=== PATIENT | male | born 1990 | race Caucasian/White ===

== ENCOUNTER 2016-11-23 19:49 | Inpatient (IN) ==
[2016-11-23] MEDS ORDERED: NS 1,000 ML IV ONE ×3 (20:04→22:35)
[2016-11-23] MEDS ORDERED: ATIVAN IV ONE (20:05)
[2016-11-23 20:09] LABS: URINE CULTURE NEEDED? NO; URINE SOURCE CLEAN CATCH
[2016-11-23 20:15] LABS: BILIRUBIN URINE NEGATIVE (NEGATIVE); BLOOD URINE MODERATE (NEGATIVE); COLOR YELLOW; GLUCOSE URINE TRACE mg/dL (NEGATIVE); LEUKOCYTES URINE NEGATIVE (NEGATIVE); NITRITE URINE NEGATIVE (NEGATIVE); PROTEIN URINE 200 mg/dL (NEGATIVE); SP GRAVITY URINE 1.032; TURBIDITY URINE HAZY (CLEAR); UR EPITHELIAL CELLS <10 /HPF (<10); URINE BACTERIA NEGATIVE /HPF; URINE MICRO REVIEW NEEDED? YES; URINE RBC TNTC /HPF (<10); URINE WBC <10 /HPF (<10); UROBILINOGEN URINE NORMAL (NORMAL)
--- NOTE | 2016-11-23 20:19 | PROVIDER DOCUMENTATION ---
HPI-General Adult - General Chief Complaint: General Adult Stated Complaint: CHILLS,N/D Time Seen by Provider: 11/23/16 19:59 Source: patient Allergies/Adverse Reactions: Patient Allergies Allergy/AdvReac Type Severity Reaction Status Date / Time No Known Allergies Allergy Verified 11/23/16 20:16 Home Medications: Home Medication List Medication Instructions Recorded Confirmed Last Taken Type Dicyclomine [Bentyl] 10 mg PO 4XDAY 11/23/16 11/23/16 11/23/16 16:00 History Pantoprazole [Protonix] 40 mg PO DAILY@0700 11/23/16 11/23/16 1 Day Ago History Promethazine [Phenergan] 25 mg PO Q6H PRN PRN 11/23/16 11/23/16 11/23/16 16:00 History - History of Present Illness -Gen Adult Nature of Presenting Problems: Pt comes in thinking that he was slipped GHB this previous tuesday. He went to [facility] and a "10 panel" drug test was negative but he was given fluids for being hypotensive and tachycardic. He denies drug use but he states that he started having bright red rectal bleeding today X 10 or so episodes. On arrival pt HR 160's SVT. Review of Systems - Adult - REVIEW OF SYSTEMS - ADULT Constitutional: reports: see HPI. denies: chills, fever, fatique, night sweats , weight gain, weight loss Eyes: reports: no symptoms reported. denies: discharge, dry eyes, decreased vision, blurred vision, double vision, eye pain, redness Ears, Nose, Mouth & Throat: reports: no symptoms reported. denies: ear discharge, ear pain, tinnitus, epistaxis, nose pain, loose teeth, mouth swelling , hoarseness, throat swelling Cardiovascular: reports: no symptoms reported. denies: chest pain, edema, heart murmur, irregular heart rate, palpitations, poor circulation, PND, syncope Respiratory: reports: no symptoms reported. denies: chronic cough, cough, dyspnea on exertion, excessive sputum production, hemoptysis, shortness of breath, wheezing Gastrointestinal: reports: see HPI, diarrhea, nausea. denies: abdominal pain, difficulty swallowing, frequent heartburn, rectal bleeding, vomiting Genitourinary: reports: no symptoms reported. denies: dysuria, discharge, flank pain, hematuria, hesitency, incontinence, urinary retention, urgency Musculoskeletal: reports: no symptoms reported. denies: bone pain, back pain, frequent leg cramps, joint swelling, muscle aches, muscle weakness, neck pain Integumentary: reports: no symptoms reported. denies: hives, hair loss, mole changes, rash, skin sores/ulcer, skin thickening Neurological: reports: no symptoms reported. denies: ataxia, dizziness/vertigo , loss of balance, numbness, seizure, slurred speech, syncope, tremors Psychiatric: reports: no symptoms reported. denies: anxiety, anti-depressant use, alcohol/drug dependence, depression, emotional problems, insomnia, panic attacks Endocrine: reports: no symptoms reported. denies: change in skin pigment, goiter, heat intolerance, increased hunger, increased thirst, polyuria Hematologic/Lymphatic: reports: no symptoms reported. denies: blood clots, easy bruising, lymphedema, prolonged bleeding, swollen lymph nodes, transfusions Allergic/Immunologic: reports: no symptoms reported. denies: allergic reactions , allergic rhinitis, asthma, eczema, hay fever, hives, positive PPD, urticaria All Other Systems: Reviewed and Negative Past History - Adult - PAST MEDICAL HISTORY-ADULT Review of Records: reports: Old Records Reviewed, Nursing Assessment Review, Medications Reviewed, Social history reviewed & non-contributory. Major Childhood Illnesses: reports: denies history Cardiovascular: reports: denies history Respiratory: reports: denies history Gastrointestinal: reports: GERD Obstetrical/Gynecological: reports: denies history Genitourinary: reports: denies history Musculoskeletal: reports: denies history Neurological: reports: denies history Endocrine/Immune: reports: denies history Other Conditions: reports: denies history - PRIOR SURGERIES/PROCEDURES Surgical/Procedure History: reports: tonsillectomy - IMMUNIZATION STATUS Childhood Immunizations: See Nurse Assessment Flu Vaccine: See Nurse Assessment - FAMILY HISTORY Family History: reviewed, not pertinent - SOCIAL HISTORY Smoking: denies Substance Use: none/never Alcohol Use Frequency: occasionally Living Situation: alone Physical Exam-General - PHYSICAL EXAM-ADULT Initial Vital Signs Reviewed: Yes - CONSTITUTIONAL General Appearance: appears well, alert, no apparent distress - EYES Eyes: PERRL/EOMI, pink conjunctivae - HEAD, EARS, NOSE, MOUTH & THROAT HENMT: normocephalic/atraumatic, moist mucous membranes, normal ENT inspection - NECK Neck: non-tender, full range of motion - RESPIRATORY Respiratory: chest non-tender, lungs clear, normal breath sounds - CARDIOVASCULAR Cardiovascular: normal peripheral pulses, regular rate, rhythm - GASTROINTESTINAL (ABDOMEN) Abdominal Exam: normal bowel sounds, non tender, soft - MUSCULOSKELETAL Back Exam: normal inspection, no CVA tenderness Extremity: normal range of motion, non-tender, normal gait - SKIN Integumentary: normal color, normal turgor, warm/dry - NEUROLOGIC Neurologic: wharf tender II-XII nml as tested, grossly normal - PSYCHIATRIC Psych/Mental Status: normal mood/affect, normal thought content, normal thought process, oriented x 3 Progress - PLAN OF CARE/RESULTS Progress/Plan/Lab Results: Vital Signs - 8 hr 11/23/16 19:55 Temperature 98.6 F Pulse Rate 172 H Respiratory Rate 18 Blood Pressure 146/93 O2 Sat by Pulse Oximetry 98 Laboratory Results - last 24 hr 11/23/16 19:55 Urine Source CLEAN CATCH Orders Category Date Time Status IV Insertion ORDERED Care 11/23/16 20:04 Active CBC WITH DIFF [HEME] Stat Lab 11/23/16 20:13 Ordered CMP [COMPREHENSIVE METABOLIC PANEL] [CHEM] Stat Lab 11/23/16 20:13 Uncollected UDS [URINE DRUG SCREEN] Stat Lab 11/23/16 19:55 Received URINALYSIS W/POSS RFLX CULT-1 [URINALYSIS] Stat Lab 11/23/16 19:55 Results 0.9% Sodium Chloride Inj [Ns] 1,000 ml Med 11/23/16 20:04 Active IV 999 mls/hr Lorazepam [Ativan] Med 11/23/16 20:05 Stop Req 2 mg IV NOW ONE EKG [EKG] Stat Ther 11/23/16 19:58 Ordered Result Diagrams: 11/23/16 20:05 11/23/16 20:00 Departure - Departure Date of Disposition Decision: 11/23/16 Time of Disposition Decision: 21:14 DIAGNOSIS: Hemorrhagic colitis, SVT (supraventricular tachycardia) Hematuria Qualifiers: Hematuria type: unspecified type Qualified Code(s): R31.9 - Hematuria, unspecified Disposition: ADMITTED INPATIENT 09 Certified Medical Emergency: Emergent Condition: Good Additional Freetext Instructions: ED Follow Up Instructions: You have been treated by a care provider in the Emergency Department. These instructions are being provided to you so you can have an understanding of how to care for yourself upon discharge. Upon discharge from the Emergency Department, you are responsible for making arrangements for follow-up care by a physician of your choice. Take all prescribed medications as directed. Return to the Emergency Department immediately for any new or worsening symptoms. You may call the Physician Referral phone number at [phone] to obtain a list of Physicians who are taking new patients. Referrals and Follow-Ups: Elie Gomez [Primary Care Provider] - - Critical Care Note This patient required my direct & personal management of CC.: No Attestation - Physician/ DAYANA Attestation Patient care was provided by Advanced Practice Provider:: Yes Advanced Practice Provider:: Sekou Garcia (physician present but did not see this patient ) Advanced Practice Provider documentation review:: The Mid-level provider documentation, treatment plan and medical decision making was reviewed by the physician who agrees with all treatment and medical decision making by the MLP.
--- NOTE | 2016-11-23 20:32 | ED EKG INTERP ---
This chart was entered by Ellyn Valencia Scribe, acting as scribe for Marcos Clay MD. EKG Interpretation - EKG Time of EKG reading by physician:: 19:55 EKG Read and Signed by:: Marcos Clay EKG Interpretation (*Must complete 3 of following elements*): Abnormal Rate: 152 Rhythm: Sinus Tachycardia [place]: right (deviation) Comments: Abnormal ECG Attestation - Physician/ DAYANA Attestation Patient care was provided by Advanced Practice Provider:: Yes Advanced Practice Provider:: Sekou Garcia Advanced Practice Provider documentation review:: The Mid-level provider documentation, treatment plan and medical decision making was reviewed by the physician who agrees with all treatment and medical decision making by the MLP. This chart was documented by the indicated scribe, (Ellyn Valencia Scribe) and accurately reflects the services I performed and decisions made by me, Marcos Clay MD, as attested by the provider's signature.
[2016-11-23 20:33] LABS: UR AMPHETAMINES QUAL NONE DETECTED (NONE DETECT); UR BARBITUATES QUAL NONE DETECTED (NONE DETECT); UR BENZODIAZEPIN QUAL NONE DETECTED (NONE DETECT); UR CANNABINOIDS QUAL NONE DETECTED (NONE DETECT); UR COCAINE QUAL NONE DETECTED (NONE DETECT); UR METHADONE QUAL NONE DETECTED (NONE DETECT); UR OPIATES QUAL NONE DETECTED (NONE DETECT); UR OXYCODONE QUAL NONE DETECTED (NONE DETECT); UR PCP QUAL NONE DETECTED (NONE DETECT)
[2016-11-23 20:43] LABS: URINE CASTS NONE SEEN
[2016-11-23 20:52] LABS: AGAP 18; ALBUMIN 3.6 g/dL (3.5-5.0); ALKALINE PHOSPHATASE 51 U/L (32-122); BUN 15 mg/dL (8-22); CALCIUM 8.7 mg/dL (8.8-10.2); CHLORIDE 92 mmol/L (98-107); COSMO 264; GOT 15 U/L (10-34); GPT 15 U/L (10-44); SODIUM 130 mmol/L (136-145); TCO2 20 mmol/L (25-35); TOTAL PROTEIN 6.9 g/dL (6.3-8.3)
[2016-11-23 20:53] LABS: BASO% 0.2 % (0.0-0.8); EOS# 0.08 X1000 (0.0-0.7); EOS% 0.8 % (0.0-10.0); HEMATOCRIT 48.4 % (42.0-52.0); IMM GRAN# 0.05 X1000 (0.0-0.04); IMM GRAN% 0.5 % (0.0-0.5); LYMPH# 0.58 X1000 (1.2-3.4); LYMPH% 5.5 % (20.5-51.1); MANUAL DIFF NEEDED? NO; MCH 30.9 PG (27-31); MCHC 35.1 g/dL (33-37); MONO# 1.13 X1000 (0.11-0.59); MONO% 10.7 % (1.7-9.3); MPV 11.3 FL (7.4-10.4); NEUT% 82.3 % (42.2-75.2); PLT 170 X1000 (130-400)
[2016-11-23 21:16] LABS: INR 0.94; PROTIME 9.8 Seconds (9.2-11.7); PTT 26.4 Seconds (22.0-36.0)
--- NOTE | 2016-11-23 21:23 | Diag Imaging Result Doc PS360 ---
EXAM: RENAL STONE SEARCH HISTORY: blood in urine and n/v TECHNIQUE: CT abdomen and pelvis without contrast. Dose reduction protocol. COMPARISON: None. FINDINGS: The upper abdomen is not included on this exam. There is at least mild fatty infiltration of the liver. Spleen is not enlarged. Normal noncontrasted pancreas. No calcified gallstones or adjacent inflammation. Normal adrenal glands. No perinephric inflammation. No renal stones. No hydronephrosis. Normal aorta. There is thickening to the wall of the colon and there are mild adjacent pericolonic inflammatory changes. Inflammation is most pronounced about the descending colon. Normal appendix. No abscess. No free air. The urinary bladder is mildly distended and appears normal. The prostate is not enlarged. There is a tiny amount of free fluid within the pelvis. IMPRESSION: 1.Colitis most pronounced in the descending colon 2.No renal stones or hydronephrosis 3.Fatty infiltration of the liver Electronically signed by Aydin Osorio 11/23/2016 9:21 PM
--- NOTE | 2016-11-23 21:58 | Diag Imaging Result Doc PS360 ---
EXAM: CHEST-2 VIEWS HISTORY: base line eval, blood in urine, nausea, vomiting TECHNIQUE: COMPARISON: None. FINDINGS: The lungs are well expanded. The heart is not enlarged. The vessels are not distended. There are no infiltrates. No pleural effusions. IMPRESSION: No acute abnormality. Electronically signed by Aydin Osorio 11/23/2016 9:56 PM
[2016-11-23] MEDS ORDERED: NS 500 ML IV ONE (22:35)
[2016-11-23] MEDS ORDERED: ZOFRAN IV PRN (22:35)
[2016-11-23] MEDS: MORPHINE IV PRN (22:47)
[2016-11-24] MEDS ORDERED: TYLENOL PO PRN (00:20)
[2016-11-24] MEDS: MORPHINE IV PRN ×7 (02:28→21:07)
[2016-11-24 05:11] LABS: BASO% 0.1 % (0.0-0.8); HEMATOCRIT 41.2 % (42.0-52.0); HEMOGLOBIN 14.4 g/dL (14.0-18.0); IMM GRAN# 0.02 X1000 (0.0-0.04); IMM GRAN% 0.3 % (0.0-0.5); LYMPH# 0.52 X1000 (1.2-3.4); LYMPH% 7.7 % (20.5-51.1); MANUAL DIFF NEEDED? YES; MCH 31.1 PG (27-31); MONO% 11.8 % (1.7-9.3); MPV 11.4 FL (7.4-10.4); NEUT% 80.1 % (42.2-75.2); PLT 125 X1000 (130-400); RBC 4.63 XMIL (4.7-6.1)
[2016-11-24 05:23] LABS: HEMOGLOBIN A1C 4.7 % (4.8-6.0)
[2016-11-24 05:28] LABS: AGAP 13; ALBUMIN 2.7 g/dL (3.5-5.0); ALKALINE PHOSPHATASE 38 U/L (32-122); BUN 9 mg/dL (8-22); CALCIUM 7.7 mg/dL (8.8-10.2); CHLORIDE 97 mmol/L (98-107); COSMO 265; GOT 11 U/L (10-34); GPT 12 U/L (10-44); MAGNESIUM 1.6 mg/dL (1.5-2.7); POTASSIUM 3.8 mmol/L (3.5-5.1); SODIUM 131 mmol/L (136-145); TCO2 21 mmol/L (25-35); TOTAL BILIRUBIN 0.37 mg/dL (0.20-1.00); TOTAL PROTEIN 5.3 g/dL (6.3-8.3)
[2016-11-24] MEDS: PRILOSEC PO SCH ×2 (05:35→06:52)
--- NOTE | 2016-11-24 05:40 | EKG Report ---
Test Performed on : 11/23/2016 7:55:51 PM Test Reason : TACHYCARDIA Blood Pressure : / mmHG Vent. Rate : 152 BPM Atrial Rate : 152 BPM P-R Int : 128 ms QRS Dur : 084 ms QT Int : 254 ms P-R-T Axes : 065 118 032 degrees QTc Int : 403 ms Sinus tachycardia. Right axis deviation Abnormal ECG No previous ECGs available Unconfirmed Result
[2016-11-24 07:00] LABS: BANDS 38 % (0-1); LYMPHS 10 % (21-51); MONO 12 % (1-9)
[2016-11-24] MEDS ORDERED: NS 1,000 ML IV ONE (07:00)
--- NOTE | 2016-11-24 07:02 | HISTORY AND PHYSICAL ---
PRIMARY CARE PHYSICIAN: Dr. Elie Gomez. TIME: 2214. CHIEF COMPLAINT: Lower abdominal pain and diarrhea. HISTORY OF PRESENT ILLNESS: Mr. Lockhart is a 26-year-old, male who presented to the ER [facility] with complaints of lower abdominal pain and diarrhea. He states that on Tuesday, he did not feel well. He actually stated that he had chills all day. The next morning , he woke up and was having diarrhea all day as well and began to have lower abdominal pain. He reports that on Tuesday, he went to [facility]. They ronaldo some labs. The patient also stated that he told the staff at [facility] that on Tuesday that he thought that he had been slipped some GHB and thought that his symptoms were secondary to this. They did do a urine drug screen at [facility] which was negative, though he was found to be hypotensive and tachycardic. He was given fluids and sent home with prescriptions. The patient states that his diarrhea persisted. He had approximately 10 episodes a day of this. He reported that today, on November 23, that he began having bloody diarrhea. He also reported some nausea. He reports lower abdominal pain that is constant and is sharp and crampy at times. He states that nothing improves or worsens his pain. He does report having a history of gastroesophageal reflux disease and takes Protonix. Upon questioning the patient, we asked him if he had a history of any previous gastrointestinal problems. He denied this. He denied any recent travel. He denied being around any other family members or friends who were sick or had similar symptoms. He also denied eating anything recently for which he thought tasted bad or made him sick. He did report that over the past day or two, he has had a slight decrease in the amount of urine he puts out and noticed that it was darker in color. He denied any dysuria. He does report that he has had problems with frequent urinary tract infections. He denies any dizziness, lightheadedness, headache, chest pain, or cough. He did report some shortness of breath, though he states this was mild. He denies any vomiting, though has had nausea as previously mentioned. He denies any pain,numbness, tingling, or swelling in extremities. Upon evaluation in the ER, the patient was initially found to be quite tachycardic. Initial vitals upon arrival were temperature 98.6 degrees, heart rate 172, respiratory rate of 18, blood pressure was 146/93, oxygen saturation was 98% on room air. Given his reported lower abdominal pain, tenderness, and bloody diarrhea, a CT renal stone search was performed which showed colitis most pronounced in the descending colon. The patient also had findings of protein in his urine as well as moderate blood and too numerous to count red blood cells. He was given a 2 L normal saline bolus in the ER. At this time, his heart rate has improved. It has come down to 120. EKG was performed which showed sinus tachycardia with a right axis deviation at a rate of 152 with a QTc of 403. At this time, the patient will be admitted for further treatment and evaluation of his colitis. REVIEW OF SYSTEMS: A 12 point review of systems was conducted with the patient. All were negative except for pertinent positives mentioned above in the HPI. PAST MEDICAL HISTORY: 1. Gastroesophageal reflux disease. 2. Frequent urinary tract infections. 3. Scheuermann's kyphosis. PAST SURGICAL HISTORY: Tonsillectomy and adenoidectomy. SOCIAL HISTORY: The patient denies any tobacco or illicit drug use, though does report occasional alcohol use. The patient currently lives alone at this time. He did report to the nurse on [facility] that he is homosexual and did previously get tested approximately 1 week ago for HIV and was told that his results were negative. FAMILY HISTORY: Positive for her his father having heart disease. He did pass away at age 60 secondary to a myocardial infarction. He reports that his mother has no known medical problems. There is also a history in grandparents of Parkinson's disease. ALLERGIES: Patient has no known allergies. HOME MEDICATIONS: 1. Flexeril 10 mg p.o. at bedtime. 2. Bentyl 10 mg p.o. 4 times a day. 3. Protonix 40 mg p.o. daily. 4. Phenergan 25 mg p.o. q.6 hours p.r.n. DIAGNOSTIC DATA/LABORATORY RESULTS: White blood cell count is 10.57, hemoglobin 17, hematocrit 48.4, platelet count is 170,000. PT is 9.8, INR is 0.94, PTT is 26.4. Sodium 130, potassium 4, chloride 92, bicarb 20, BUN 15, creatinine 1.1, glucose is 143, hemoglobin A1c is 4.7, calcium 8.7. Liver function tests within normal limits. CK 88, troponin is less than 0.01. Urinalysis was obtained via clean catch, was positive for protein, ketones, moderate blood , and too numerous to count red blood cells. It was negative for nitrites, leukocytes, white blood cells, or bacteria. A urine drug screen was negative. EKG showed sinus tachycardia with a right axis deviation at a rate of 152 with a QTc of 403. CT renal stone search showed colitis most pronounced in the descending colon. There is thickening to the wall of the colon and there are mild adjacent pericolonic inflammatory changes. There are no renal stones or hydronephrosis noted. There is fatty infiltration of the liver. Chest x-ray, 2 view showed no acute abnormality. These findings were per Radiology. PHYSICAL EXAMINATION: VITAL SIGNS: Heart rate 129, respirations 18, blood pressure is 155/97, oxygen saturation is 96% on room air. GENERAL: Mr. Lockhart is a pleasant, 26-year-old, male who is resting on the ER stretcher. He was in no acute distress. He was awake, alert, and able to answer all questions appropriately. HEENT: Head is atraumatic, normocephalic. Pupils are equal, round, reactive to light, were 3 mm bilaterally and brisk. Oral mucosa was moist. Oropharynx was clear. NECK: Supple. Trachea midline. CARDIOVASCULAR: Patient has normal S1, S2. No murmurs, gallops, or rubs appreciated, with a tachycardic rate that is regular. PULMONARY: Patient has symmetrical chest expansion bilaterally. Lung sounds are clear to auscultation in bilateral full flood. ABDOMEN: Soft, nondistended. The patient does have some generalized tenderness noted. This tenderness is more pronounced upon palpation just inferior to the umbilicus and in the left lower quadrant. The patient does have bowel sounds present in all 4 quadrants that are normoactive. EXTREMITIES: No cyanosis, clubbing, or edema noted. Pulse, motor, and sensory are intact in all extremities. Pedal pulses are 3+ bilaterally. INTEGUMENTARY: The patient's skin is pink, warm, dry, intact. No lesions or sores noted. NEUROLOGICAL: Patient is alert and oriented x4. Cranial nerves 2-12 are grossly intact. ASSESSMENT AND PLAN: 1. Colitis. Differentials for this could include ulcerative colitis as well as possible enterohemorrhagic Escherichia coli. We also suspect that the patient could be developing possible hemolytic uremic syndrome secondary to this. He does have findings of hematuria, proteinuria, as well as bloody diarrhea, abdominal pain, and nausea. Given a suspicion of this, at this time we have held antibiotic therapy. We will treat him symptomatically with fluids. We have placed orders for stool studies and have also placed a consult with gastroenterology. We will await their evaluation and further recommendations. He will be placed on a clear liquid diet at this time. We also did add on a haptoglobin, LDH, as well as a CRP and sedimentation rate. 2. Fluid volume depletion. We did give a total bolus of 2500 mL of normal saline. We will continue with normal saline at 125 mL per hour. 3. Tachycardia. EKG in the emergency room showed sinus tachycardia. His cardiac enzymes are negative. This is likely secondary to fluid volume depletion. After fluid bolus was given, his heart rate has improved. It is down to 120 from initial at 170 upon arrival in the emergency room. 4. Gastroesophageal reflux disease. We will continue his Protonix. 5. Deep vein thrombosis prophylaxis. This will be provided with sequential compression devices at this time. The patient has been placed in [facility] with telemetry for close monitoring. He will have vital signs q.4 hours with strict intake and output. We will treat his pain with morphine and Zofran for nausea at this time. Further orders and recommendations pending hospital course , diagnostic studies, and physician evaluation. Dictated by TIFFANIE Joel for Felix Resendiz MD cc: MD KAREEM Cedillo
[2016-11-24] MEDS ORDERED: ZOFRAN IV PRN (11:49)
--- NOTE | 2016-11-24 12:29 | PROGRESS NOTE ---
DATE: 11/24/2016 SUBJECTIVE: Patient has no focal complaints. OBJECTIVE: Vital Signs: Blood pressure 152/97, heart rate of 117, respiratory rate 15, temperature 98.6. T-max was 101.8. Cardiovascular: Regular rate and rhythm. Pulmonary: Bilateral breath sounds. Clear to auscultation. GI: Soft, nontender, nondistended. Bowel sounds are positive. Extremities: No clubbing or cyanosis. Lymphatics: No peripheral edema. Neurological: Nonfocal. LABORATORY DATA: White count 6, hemoglobin and hematocrit 14 and 41, platelets of 125. Sodium 131, BUN and creatinine are normal 9 and 0.9. A1c 4.7. LDH was negative. It was normal. CRP is elevated 282. Albumin 2.7. PROBLEM LIST: 1. Colitis, infectious versus inflammatory. At this point, most likely infectious. We are holding on antibiotics because of the putative concern over hemolytic uremic syndrome. He is anemic. I cannot tell per say that he is hemolyzing and he is not uremic or in any renal failure, so at this point, I am not sure if that is an active issue. However, he is afebrile at this point and no white count and clinically improved, so, I am going to watch him. If he does develop fever though, I would be concerned to initiate antibiotics, but at this point I think he is clinically resolved. GI has been consulted. He does have heme-positive stools. He does have a high white count. Inflammatory bowel disease is certainly a possibility. His CRP is very elevated. 2. Dehydration. Will continue fluids. 3. Sinus tachycardia. Again, appears to be stable. 4. Disposition: If he is improved, we could discharge him and pursue endoscopy as an outpatient. We will get GI to evaluate further. Continue clear liquids for right now. 5. Anemia. We are evaluating from hemolysis. At this point again, he has a normal bilirubin and a normal LDH, which would argue against hemolysis, but we will continue to follow. cc: Ramon Garg MD
[2016-11-24] MEDS ORDERED: GOLYTELY PO ONE (14:00)
[2016-11-24] MEDS: SODIUM CHLORIDE 0.9% INJ SCH (15:07)
[2016-11-24] MEDS: LEVAQUIN 500 MG/D5W 500 MG/100 ML IVPB IV SCH (15:08)
[2016-11-24] MEDS: PROTONIX IV SCH (15:08)
[2016-11-24] MEDS: FLAGYL 500 MG/NS 500 MG/100 ML IVPB IV SCH (15:08)
[2016-11-25] MEDS: MORPHINE IV PRN ×4 (00:09→15:03)
[2016-11-25] MEDS: FLAGYL 500 MG/NS 500 MG/100 ML IVPB IV SCH ×3 (00:10→13:44)
[2016-11-25 05:07] LABS: HEMATOCRIT 38.4 % (42.0-52.0); HEMOGLOBIN 13.3 g/dL (14.0-18.0); MCH 30.8 PG (27-31); MCHC 34.6 g/dL (33-37); MCV 88.9 FL (81-99); MPV 11.5 FL (7.4-10.4); RBC 4.32 XMIL (4.7-6.1); RETIC% 1.2 % (0.8-2.1); RETIC-HE 26.4 PG (28.2-36.6)
[2016-11-25 06:01] LABS: AGAP 14; BUN 6 mg/dL (8-22); CALCIUM 8.4 mg/dL (8.8-10.2); CHLORIDE 96 mmol/L (98-107); COSMO 269; POTASSIUM 3.6 mmol/L (3.5-5.1); SODIUM 135 mmol/L (136-145); TCO2 25 mmol/L (25-35)
[2016-11-25] MEDS ORDERED: VERSED ONE (09:23)
[2016-11-25] MEDS ORDERED: DIPRIVAN 1% ONE (09:58)
[2016-11-25] MEDS ORDERED: XYLOCAINE-MPF 2% ONE (09:58)
[2016-11-25] MEDS ORDERED: FENTANYL ONE (10:02)
[2016-11-25] MEDS ORDERED: ROMAZICON (DOSE) ONE (10:37)
--- NOTE | 2016-11-25 10:55 | CONSULTATION ---
DATE OF CONSULTATION: 11/24/2016 ATTENDING PHYSICIAN: Dr. Garg. REASON FOR CONSULTATION: Rectal bleeding and diarrhea, abdominal pain. HISTORY OF PRESENT ILLNESS: Mr. Lockhart is a 26-year-old male who presented to the hospital on 11/23/2016 with symptoms of left lower quadrant pain, periumbilical pain, diarrhea, and rectal bleeding. Per the patient, he started having these symptoms on Tuesday, about 3 days ago. The symptoms got worse and he presented to the hospital. Prior to the onset of symptoms, he had eaten at [email or web address] and at a friend's house. None of his contacts are really sick. He denies any history of foreign travel. He works in the packaging industry. He has never had a history of colitis before. On admission, he was found to have blood in the stools and CT scan showed evidence of colitis. His stool studies are currently pending. Gastroenterology was consulted for possibility of ulcerative colitis. PAST MEDICAL HISTORY: Gastroesophageal reflux disease, frequent UTIs, kyphosis. PAST SURGICAL HISTORY: Tonsillectomy and adenoidectomy. SOCIAL HISTORY: No history of tobacco or illicit drug abuse. He does report occasional alcohol use. He lives alone at this time. He works in the packaging industry. FAMILY HISTORY: Heart disease in his father. No history of ulcerative colitis or Crohn's disease in the family history. ALLERGIES: No known drug allergies. MEDICATIONS AT HOME: 1. Flexeril 10 mg at bedtime. 2. Bentyl 10 mg p.o. 4 times a day. 3. Protonix 40 mg a day. 4. Phenergan 25 mg every 2 hours. MEDICATIONS IN THE HOSPITAL: 1. Tylenol 650 mg p.o. q.6 hours. 2. Flagyl 500 mg IV every 8 hours. 3. Levaquin 500 mg IV once daily. 4. Morphine 2 mg IV q.3 hours. 5. Zofran 4 mg IV every 4 hours. 6. Protonix 40 mg IV q.24 hours. 7. He is currently on a clear liquid diet. REVIEW OF SYSTEMS: Denies any current fevers, rigors, chills, chest pain, shortness of breath, dyspnea at rest. Denies any genitourinary complaints. Denies any nausea, vomiting, or vomiting blood at this time, although at home, he did have some nausea symptoms. PHYSICAL EXAMINATION: Vital Signs: Temperature 98.1, pulse rate of 111, respiratory rate blood pressure 149/91, saturating 98% on room air. Body weight of 202 pounds, BMI of 27.4 kg/m2. General: Moderate built, moderate nourished, lying in bed, in no acute distress. HEENT: No pallor. No icterus. Pupils equal, react to light. Neck: Supple. Chest: Decreased breath sounds. Heart: Regular rate and rhythm. Tachycardic at times. Abdomen: Discomfort in the periumbilical region. No rebound, no guarding. Bowel sounds present. Extremities: No cyanosis, clubbing, edema. Neurologic: He is alert, awake, oriented. LABS: Hemoglobin and hematocrit are 14.4 and 41.2, white count of 6.7, platelet count of 125,000, MCV of 89. INR of 0.94. Sodium 131, potassium 3.8, chloride 97, bicarb 21, anion gap of 13, BUN of 9, creatinine 0.9, glucose of 168, calcium is 7.7, HB A1c 4.7, magnesium 1.6. Total bilirubin is 0.37, AST 11, ALT 12, alkaline phosphatase, LDH is 191, CRP is 282.27, total protein 5.3, albumin of 2.7. Sedimentation rate of 22. Toxicology screen is negative. Urinalysis: Positive ketones, positive protein, moderate blood. Stool studies: Culture is pending. Ova and parasites, none seen. Stool for white cells, many. Yersinia culture is pending. Stool for occult blood is positive. Blood cultures x2 were drawn today, results are currently pending. Renal CT done on 11/23/2016 which showed colitis most pronounced in the descending colon. No renal stones. Fatty infiltration of the liver. IMPRESSION/PLAN: 1. Left-sided colitis in the descending colon seen on CT scan along with abdominal pain, diarrhea, and blood in the stools. 2. Fatty liver disease. 3. Reflux disease. RECOMMENDATIONS: 1. We will obtain the stool studies. 2. We keep the patient on IV antibiotics, IV fluids, and IV PPIs. 3. We will schedule patient for a flexible sigmoidoscopy/colonoscopy tomorrow to evaluate for any kind of ulcerative colitis or Crohn's disease. 4. The risks, benefits, indications, and alternatives to the procedure were discussed with the patient. All questions were answered. 5. We will keep the patient on GI prophylaxis with PPIs. 6. We will keep him on IV antiemetics and IV pain control. 7. Further recommendations to follow pending hospital course. cc: MD Ramon Wilson MD Jay Pohl, MD MTDD
[2016-11-25] MEDS: SOLU-MEDROL IV SCH (11:14)
[2016-11-25] MEDS: CULTURELLE PO SCH ×2 (11:14→20:27)
[2016-11-25] MEDS: SODIUM CHLORIDE 0.9% INJ SCH (13:43)
[2016-11-25] MEDS: PROTONIX IV SCH (13:43)
[2016-11-25] MEDS: LEVAQUIN 500 MG/D5W 500 MG/100 ML IVPB IV SCH (14:39)
[2016-11-25] MEDS: CIPRO PO SCH (20:27)
--- NOTE | 2016-11-25 20:35 | OPERATIVE NOTE ---
PROCEDURE DATE: 11/25/2016 ATTENDING PHYSICIAN: Dr. Garg. PRIMARY CARE DOCTOR: Elie Gomez MD. PROCEDURE: Ileal colonoscopy with colonic biopsy. PREOPERATIVE DIAGNOSES: 1. Colitis on CT scan. 2. Abdominal pain in the left lower quadrant, periumbilical region for the last 4 days. 3. Diarrhea for 4 days. 4. Rectal bleeding for 4 days. POSTOPERATIVE DIAGNOSES: 1. Mild ileitis at the IC valve and terminal ileum. 2. Harris colitis, more severe in the descending and sigmoid colon and rectum as compared to the transverse and ascending colon. This is going be biopsied. 3. Suspect ulcerative colitis. ESTIMATED BLOOD LOSS: None. COMPLICATIONS: None. ANESTHESIA: Monitored anesthesia care. SPECIMENS: Random colon biopsies sent. DESCRIPTION OF PROCEDURE: After informed consent, the patient was explained the risks, benefits, indications, and alternatives to the procedure, the patient was prepared for colonoscopy. The patient was brought to the OR. He was turned on the left lateral position. Rectal exam was performed and revealed normal rectum, no masses felt. No blood on examining finger. The colonoscope was introduced through the anal verge and advanced all the way to the terminal ileum. It showed evidence of mild erythema and erosions suggesting terminal ileitis. This is mild in nature. Cecum, ascending colon, hepatic flexure, and transverse colon showed evidence of mild colitis, mucosal erythema, and mucosal edema. There were no ulcerations noted in that area. In the descending and sigmoid rectum there is evidence of moderate to severe colitis in the form of erythema, friability, erosions, ulcerations, and mucosal granularity in diffuse nature, suggesting ulcerative colitis. This was biopsied. The colitis extended all the way to the anal verge. The air was aspirated and the scope withdrawn. The patient tolerated the procedure well and closely monitored in the OR in stable condition. I discussed the findings with the patient on waking up and all questions have been answered. RECOMMENDATIONS: 1. Patient will be on full liquids for the next 2-3 days and advance as tolerated. 2. We will start him on Solu-Medrol 60 mg IV q.12 hours for now and on discharge we will start him on prednisone 40 mg daily for 7 days and wean him down by 10 mg every 7 days until he goes to 0. 3. The patient will continue Levaquin and Flagyl for a total of 7 days. We will start on Culturelle 1 capsule p.o. b.i.d. for 6 weeks. 4. The patient will be on MVI 1 capsule p.o. daily. 5. The patient will return to clinic in 1 month after discharge. 6. The patient will avoid spicy foods and drink plenty of fluids. 7. We will follow up the final results of the stool studies. So far, C. difficile and stool culture has been negative. Only Yersinia culture is pending. 8. Further recommendations pending hospital course. cc: MD Elie Wilson MD Alexis R. Penot, MD MTDD
[2016-11-25] MEDS ORDERED: FLEXERIL PO SCH (21:00)
[2016-11-26 06:15] LABS: HEMATOCRIT 40.4 % (42.0-52.0); HEMOGLOBIN 13.8 g/dL (14.0-18.0); MCH 30.9 PG (27-31); MCHC 34.2 g/dL (33-37); MCV 90.6 FL (81-99); MPV 11.5 FL (7.4-10.4); RBC 4.46 XMIL (4.7-6.1)
[2016-11-26 06:18] LABS: AGAP 10; BUN 9 mg/dL (8-22); CALCIUM 9.3 mg/dL (8.8-10.2); CHLORIDE 99 mmol/L (98-107); COSMO 272; SODIUM 136 mmol/L (136-145); TCO2 27 mmol/L (25-35)
[2016-11-26] MEDS: FLAGYL 500 MG/NS 500 MG/100 ML IVPB IV SCH ×3 (06:29→15:51)
[2016-11-26] MEDS: CULTURELLE PO SCH (09:19)
[2016-11-26] MEDS: CIPRO PO SCH (09:19)
[2016-11-26] MEDS: SOLU-MEDROL IV SCH ×2 (11:27)
[2016-11-26] MEDS: SODIUM CHLORIDE 0.9% INJ SCH (14:04)
[2016-11-26] MEDS: PROTONIX IV SCH (14:04)
[2016-11-26 16:48] VITALS: BP 145/85
--- NOTE | 2016-11-26 20:16 | DISCHARGE SUMMARY ---
ADMISSION DATE: 11/23/2016 DISCHARGE DATE: 11/26/2016 DISCHARGE DIAGNOSES: 1. Colitis, presumably ulcerative colitis, possibly infectious colitis. 2. Dehydration. 3. Possible infectious colitis. CONSULTATIONS: Klever Jackson MD. PROCEDURE: Colonoscopy. HOSPITAL COURSE: Briefly, this is a 26-year-old male presenting with rectal bleeding and fever. Normal hemoglobin and hematocrit. Stool was positive for blood and was negative for fecal white blood cells. CT scan showed pancolitis. He was not placed on antibiotics initially because there was concern over hemolytic uremic syndrome. He did not have indices of hemolysis. I do not feel he had indices of azotemia either. Dr. Jackson saw him and put him on Levaquin and Flagyl. Patient had a reaction to Levaquin including an intravascular kind of inflammation that was witnessed by myself. We stopped Levaquin and put him on oral ciprofloxacin which he tolerated in the past. Of note he also tolerated Levaquin in the past. Dr. Jackson consulted on him and proceeded with a colonoscopy on the which showed diffuse inflammation with concern over possible ulcerative colitis. He was placed on steroids. Biopsies were taken the following day. He clinically improved. Bleeding had essentially stopped. He was still having some intermittent diarrhea but had overall improved. He was afebrile. He was admitted for treatment. He did have a fever of 101.8 on admission. Plan was to discharge. Follow up with Dr. Jackson in 4 weeks. Discharge on prednisone taper and antibiotics. Return for worsening symptomatology. Biopsy is pending at the time of report. His shiga toxin was negative. Urine drug screen was negative. His inflammatory bowel disease marker was negative but there is still some concern with recurrence but he had this process to begin with. DISCHARGE MEDICATIONS: 1. Cipro 500 b.i.d. for another 7 days. 2. Flexeril p.r.n. 3. Bentyl p.r.n. 4. Flagyl 500 t.i.d. for 7 days. 5. Prednisone taper over a month. 6. Phenergan p.r.n. DISCHARGE CONDITION: Stable. DISCHARGE TIME: 32 minutes. cc: MD Klever Jordan MD Jay Pohl, MD
== END 2016-11-26 17:04 | disposition home or self-care (01) ==
LOC: ED 19:49 → 3S 23:37 → MERGE 23:37 → SUATTDRO 23:37 → 3S 11-24 16:43 → 4N 11-25 18:51
PROVIDERS: ATTEND Internal Medicine